=== PATIENT | female | born 1975 | race Caucasian/White ===

== ENCOUNTER 2019-03-15 00:17 | Emergency (ER) | payer BC, OTHER ==
[~2019-03-15] VITALS: Ht 154.9 cm; Wt 119.8 kg
[2019-03-15 02:02] LABS: HEMATOCRIT 22.9 % (37.0-47.0); HEMOGLOBIN 7.4 gm/dL (12.0-15.0); MCH 24.7 pg (26.0-34.0); MCHC 32.3 g/dL (28.0-37.0); MCV 76.4 fL (80.0-100.0); PLATELET COUNT 401 thou/uL (150-400); RBC 2.99 mil/uL (4.20-5.00); RDW 15.2 % (10.5-14.5); WBC 7.8 thou/uL (4.0-11.0)
[2019-03-15 02:07] LABS: ANION GAP 11 mmol/L (7-16); BUN 20 mg/dL (7-18); CALCIUM 9.7 mg/dL (8.5-10.1); CHLORIDE 96 mmol/L (98-107); CO2 27 mmol/L (21-32); CREATININE 0.9 mg/dL (0.6-1.0); GLUCOSE 137 mg/dL (74-106); POTASSIUM 3.8 mmol/L (3.5-5.1); SODIUM 134 mmol/L (136-145)
[2019-03-15 02:22] LABS: ALBUMIN 2.6 g/dL (3.4-5.0); LIPASE 92 U/L (73-393); SGOT 92 U/L (15-37); SGPT 28 U/L (30-65); TOTAL BILIRUBIN 0.5 mg/dL (<0.1-1.0); TOTAL PROTEIN 7.7 g/dL (6.4-8.2); TROPONIN-I <0.06 ng/mL (<0.06)
[2019-03-15] MEDS ORDERED: ONDANSETRON ODT8 MG PO (02:44)
[2019-03-15 02:47] LABS: ABSOLUTE NEUTROPHILS 6.7 thou/uL (1.4-8.2); LARGE PLATELETS OCCASIONAL
[2019-03-15 04:17] VITALS: BP 124/56
[2019-03-15 04:24] LABS: URINE BLOOD NEGATIVE (Negative); URINE CLARITY CLEAR; URINE COLOR YELLOW; URINE GLUCOSE-RANDOM* NEGATIVE (Negative); URINE KETONES 3+ (Negative); URINE LEUKOCYTES-REFLEX NEGATIVE (Negative); URINE NITRITE-REFLEX NEGATIVE (Negative); URINE PROTEIN (DIPSTICK) TRACE (Negative)
[2019-03-15 04:41] LABS: ICTOTEST (BILI CONFIRMATORY) Negative (Negative); URINE BILIRUBIN NEGATIVE (Negative); URINE REDUCING SUBSTANCE NEGATIVE
--- NOTE | 2019-03-15 12:13 | EKG ---
[address] [address] ELECTROCARDIOGRAM REPORT Name: ALESSIO ABBASI [facility] [id number] ������������������ Admission: 03/15/19 ������������������ Attend Phys: Discharge: 03/15/19 ������������������ Date of : 73 Report #: [id number] ����������������������������������������������������������������� [id number] THIS REPORT FOR: //name// [facility] ED Test Date: 2019-03-15 Test Time: 00:47:44 Pat Name: ALESSIO ABBASI Department: Room: Gender: F [employer]: mehrdad : 1975 Requested By: Evaristo Mann Order Number: [id number] MD: Dickson Adams Measurements Intervals Chrisman Rate: 72 P: 48 MN: 148 QRS: 72 QRSD: 99 T: 44 QT: 478 QTc: 524 Interpretive Statements Sinus rhythm Prolonged QT interval No previous ECG available for comparison Electronically Signed On 03-15-2019 12:13:00 CDT by Dickson Adams [email or web address] ��������������������������������������������� <ELECTRONICALLY SIGNED> ���������������������������������������� By: Dickson Adams MD, [facility] ��������������������������������������������� 03/15/19 1213 0047 0047 Dickson Adams MD, FACC /EPI
== END 2019-03-15 04:17 | disposition home or self-care (01) ==
LOC: ER 00:17
PROVIDERS: Emergency Medicine
DX: R11.2 Nausea with vomiting, unspecified (principal); C15.9 Malignant neoplasm of esophagus, unspecified; G89.29 Other chronic pain; M54.5 Low back pain; D64.9 Anemia, unspecified; Z91.013 Allergy to seafood; Z91.018 Allergy to other foods